=== PATIENT | male | born 1960 | race Two or more races ===

== ENCOUNTER 2025-02-17 03:37 | Emergency (ER) | payer MEDICAID, SELFPAY ==
[2025-02-17 03:39] VITALS: BMI 31.4
[2025-02-17 03:53] VITALS: BP 132/89; PULSE 56; RESP 19; TEMP 36.9; O2SAT 96
--- NOTE | 2025-02-17 04:16 | EDNOTE_ITS ---
ED General RME/HPI General Chief complaint: General Adult/Misc Complain Stated complaint: POSSIBLE SPIDER BITR L FOREARM Time Seen by Provider: 02/17/25 03:43 Arrival date/time: 02/17/25 03:37 64-year-old male reports with complaints of severe left arm pain after being bitten by a black spider yesterday afternoon. Patient says the pain extends from the wrist where the bite is up to the shoulder. He denies tongue or face or throat swelling shortness of breath chest pain abdominal pain nausea vomiting weakness fatigue numbness tingling or weakness in the limb. Patient states that he attempted to take 1 naproxen last evening with no improvement of symptoms. Patient states he had tetanus vaccine 2 years ago. Limitations: no limitations Related Data Previous Rx's ?Medication ?Instructions ?Recorded metaxalone 800 mg tablet 800 mg PO BID PRN muscle halima n #30 02/17/25 tabs Allergies Allergy/AdvReac Type Severity Reaction Status Date / Time No Known Allergies Allergy Verified 02/17/25 03:46 Review of Systems Constitutional Constitutional: Denies chills and Denies fever(s) ENT Ears, Nose, Mouth, and Throat: Denies throat swelling and Denies tongue swelling Cardiovascular Cardiovascular: Denies chest pain, Denies dyspnea and Denies syncope Respiratory Respiratory: Denies cough and Denies dyspnea Gastrointestinal Gastrointestinal: Denies abdominal pain, Denies nausea and Denies vomiting Musculoskeletal Musculoskeletal: Reports arthralgias, Denies deformity, Denies joint swelling, Denies numbness and Denies tingling Integumentary/Breasts Skin/Breast: Denies unusual bruising and Reports wounds Neurologic Neurologic: Denies convulsions, Denies numbness, Denies syncope and Denies tingling Allergic/Immunologic Allergic/Immunologic: Denies throat swelling and Denies tongue swelling Past Medical History Social History SMOKING STATUS: Never smoker ED Exam General Limitations: Present no limitations General appearance: Present alert and in no apparent distress Head Head exam: Present atraumatic Eye Eye exam: Present normal appearance, PERRL and EOMI ENT ENT exam: Present normal exam, normal oropharynx, mucous membranes moist and other (Airway patent no tongue swelling) Neck Neck exam: Present normal inspection, full ROM and trachea midline Chest Chest inspection: Present normal inspection and symmetric chest wall rise Respiratory Respiratory exam: Present normal lung sounds bilaterally Cardiovascular Cardiovascular exam: Present regular rate, normal rhythm and normal heart sounds Abdominal Exam Abdominal exam: Present soft and normal bowel sounds; Absent distention or tenderness Expanded Upper Extremity Exam Shoulder exam: Present normal inspection and full ROM Arm exam: Present normal inspection and full ROM Elbow exam: Present normal inspection and full ROM Forearm/Wrist exam: Present full ROM and other (dorsal left wrist with 2 small puncture wounds, mild erythema, no d/c) Hand exam: Present normal inspection and full ROM; Absent tenderness or swelling Neuromotor exam: Normal wrist extension, thumb opposition and fingers 2-5 abduction Neurosensory exam: Normal radial nerve and ulnar nerve Vascular exam: Normal capillary refill, radial pulse and ulnar pulse Back Exam Back exam: Present normal inspection and full ROM Neurological Exam Neurological exam: Present alert, oriented X3 and CN II-XII intact Psychiatric Psychiatric exam: Present normal affect and normal mood Skin Skin exam: Present warm, dry, intact and normal color Course Quality Measures none Orders Category Date Time Status Wound Care NOW Care 02/17/25 04:23 Active Ketorolac Inj [Toradol Inj] Med 02/17/25 04:16 Discontinued 30 mg IM X1 ONE Vital Signs Vital signs: Vital Signs Temperature 98.4 F 02/17/25 03:53 Pulse Rate 56 L 02/17/25 03:53 Respiratory Rate 19 02/17/25 03:53 Blood Pressure 132/89 H 02/17/25 03:53 Pulse Oximetry (%) 96 02/17/25 03:53 Oxygen Delivery Method Room Air 02/17/25 03:53 Discharge Plan Plan Patient Disposition: HOME (Self Care) Prescriptions/Referrals Prescriptions/Med Rec: New metaxalone 800 mg tablet 800 mg PO BID PRN (Reason: muscle pain) Qty: 30 0RF Problem List Clinical Impression: Spider bite Patient/Caregiver Discharge Instructions Discharge Activity: activity as tolerated Education Materials: First Aid: Poisoning Additional Instructions: Keep the area clean and dry take pain medicine as needed hydrate well follow-up with your primary care provider in 48 hours. Return to the emergency department if symptoms worsen Print Language: [place] Irish Stand Alone Forms: [employer] Award Info., Patient Portal Info Letter MDM Medication Administration(s) Medication Administration History Discontinued Medications Ketorolac Tromethamine (Ketorolac Inj 30 Mg/Ml Vial) 30 mg IM X1 ONE Stop: 02/17/25 04:17
[2025-02-17] MEDS: KETOROLAC INJ 30 MG/ML VIAL IM (04:36)
== END 2025-02-17 04:40 | disposition home or self-care (01) ==
LOC: SERX 04:31
PROVIDERS: Emergency Provider Physician Assistant; PCP Family Medicine
DX: T63.311A Toxic effect of venom of black widow spider, accidental (unintentional), initial encounter (principal)
CPT/HCPCS: 96372; 99282; J1885